=== PATIENT | female | born 1960 | race Hispanic/Latino ===

== ENCOUNTER 2020-01-01 13:31 | Inpatient (IN) | payer OTHER ==
[~2020-01-01] VITALS: Ht 165.1 cm; Wt 111.2 kg
[2020-01-01] MEDS ORDERED: MAG HYDROX/AL HYDROX/SIMETH ES 30 ML SUSP UDCUP ONE (14:20)
[2020-01-01] MEDS ORDERED: LIDOCAINE HCL 2% VISCOUS 15 ML UDCUP ONE (14:20)
[2020-01-01] MEDS ORDERED: ONDANSETRON HCL 4 MG/2 ML VIAL ONE (14:20)
[2020-01-01] MEDS ORDERED: KETOROLAC TROMETHAMINE 15MG/ML ONE (14:20)
[2020-01-01] MEDS ORDERED: MORPHINE SULFATE 4 MG/1ML SYG ONE ×2 (14:21→15:56)
[2020-01-01] MEDS ORDERED: SODIUM CHLORIDE 0.9% 1000ML 1,000 ML IV ONE (14:21)
[2020-01-01 14:32] LABS: BASOPHILS % (AUTO) 0.1 % (0.0-5.0); HEMATOCRIT 48.7 % (36-48); LYMPHOCYTES % (AUTO) 8.3 % (21.0-51.0); MEAN CORPUSCULAR HEMOGLOBIN 28.6 pg (27.0-33.0); MEAN CORPUSCULAR HGB CONC 34.3 g/dL (32.0-36.0); MEAN CORPUSCULAR VOLUME 83.4 fL (79-99); MONOCYTES % (AUTO) 4.7 % (3.0-13.0); NEUTROPHILS % (AUTO) 86.6 % (40.0-77.0); PLATELET COUNT (AUTO) 316 K/uL (130-400); RED BLOOD CELL COUNT(AUTO) 5.84 MIL/uL (4.00-5.50); RED CELL DISTRIBUTION WIDTH 13.5 % (11.0-15.5); WHITE BLOOD COUNT (AUTO) 17.9 K/uL (4.8-10.8)
[2020-01-01 14:50] LABS: CREATININE 0.9 mg/dL (0.5-1.5); POTASSIUM 3.7 mmol/L (3.5-5.1)
[2020-01-01 14:55] LABS: ALBUMIN 3.8 g/dL (3.5-5.0); BILIRUBIN,TOTAL 0.7 mg/dL (0.2-1.0); TOTAL PROTEIN, SERUM 7.5 g/dL (6.0-8.3)
[2020-01-01] MEDS ORDERED: ZOSYN 3.375GM+NS 50ML 50 ML IV ONE (15:55)
[2020-01-01] MEDS ORDERED: LACTATED RINGERS 1000ML IV SCH (16:45)
[2020-01-01] MEDS: LACTATED RINGERS 1000ML 1,000 ML IV SCH (16:45)
[2020-01-01] MEDS ORDERED: ACETAMINOPHEN 325 MG TAB PO PRN (16:45)
[2020-01-01] MEDS ORDERED: HYDRALAZINE HCL 20 MG/ML VIAL IV PRN (16:45)
[2020-01-01] MEDS ORDERED: ONDANSETRON HCL 4 MG/2 ML VIAL IV PRN (16:45)
[2020-01-01] MEDS ORDERED: LACTULOSE 20 GM/30 ML UDCUP PO PRN (16:45)
[2020-01-01] MEDS: ZOSYN 3.375GM+NS 50ML 50 ML IV SCH (16:45)
[2020-01-01] MEDS ORDERED: LACTATED RINGERS 1000ML 1,000 ML IV ONE (17:42)
[2020-01-01] MEDS ORDERED: LISI10TA7 PO (19:44)
[2020-01-01] MEDS: FAMOTIDINE/PF 20 MG/2 ML VIAL IV SCH (21:00)
[2020-01-01] MEDS ORDERED: MORPHINE SULFATE 2 MG/ML 1ML SYG ONE (22:16)
[2020-01-01] MEDS ORDERED: FAMOTIDINE/PF 20 MG/2 ML VIAL IV ONE (22:39)
[2020-01-01 23:29] VITALS: BP 182/86
[2020-01-02] MEDS: LACTATED RINGERS 1000ML 1,000 ML IV SCH ×4 (00:13→22:30)
[2020-01-02] MEDS: ZOSYN 3.375GM+NS 50ML 50 ML IV SCH ×3 (01:17→17:20)
[2020-01-02] MEDS: MORPHINE SULFATE 4 MG/1ML SYG IV PRN ×2 (01:52→22:25)
[2020-01-02 03:32] VITALS: BP 142/72
[2020-01-02 06:43] LABS: BASOPHILS % (AUTO) 0.2 % (0.0-5.0); EOSINOPHILS % (AUTO) 0.2 % (0.0-8.0); HEMATOCRIT 41.7 % (36-48); LYMPHOCYTES % (AUTO) 15.9 % (21.0-51.0); MEAN CORPUSCULAR HEMOGLOBIN 28.6 pg (27.0-33.0); MEAN CORPUSCULAR HGB CONC 32.9 g/dL (32.0-36.0); MEAN CORPUSCULAR VOLUME 87.1 fL (79-99); MONOCYTES % (AUTO) 6.1 % (3.0-13.0); NEUTROPHILS % (AUTO) 77.3 % (40.0-77.0); PLATELET COUNT (AUTO) 255 K/uL (130-400); RED BLOOD CELL COUNT(AUTO) 4.79 MIL/uL (4.00-5.50); RED CELL DISTRIBUTION WIDTH 14.1 % (11.0-15.5); WHITE BLOOD COUNT (AUTO) 13.2 K/uL (4.8-10.8)
[2020-01-02 06:50] LABS: HEMOGLOBIN A1C 5.7 % (4.0-6.0)
[2020-01-02 07:08] LABS: BILIRUBIN,TOTAL 0.7 mg/dL (0.2-1.0); CREATININE 0.8 mg/dL (0.5-1.5); THYROID STIMULATING HORMONE 1.03 uIU/mL (0.36-3.74); TOTAL PROTEIN, SERUM 6.2 g/dL (6.0-8.3)
[2020-01-02 07:28] LABS: CRP QUANTITATIVE 85.3 mg/L (0.00-9.0)
[2020-01-02 08:00] VITALS: BP 156/78
[2020-01-02] MEDS: ENOXAPARIN SODIUM 30 MG/0.3 ML SQ SCH (09:09)
[2020-01-02] MEDS: FAMOTIDINE/PF 20 MG/2 ML VIAL IV SCH ×2 (09:19→22:26)
[2020-01-02 11:00] VITALS: BP 133/78
--- NOTE | 2020-01-02 12:32 | NUR ---
Initial Assessment SW met with patient. Patient lives w/spouse, Rosemary Brice, . No home services. DME: [employer], walker with wheels, shower chair. Patient needs assistance with ADL's at times but does drive. Patient and spouse just moved from [place] 5 months ago. No PCP at this time. Pharmacy is [facility] located in [place]. DCP is home. Addendum: 01/02/20 at 1236 by DANNY HADDAD SS Amended: Links added.
--- NOTE | 2020-01-02 15:23 | NUR ---
THE OFFICE OF DR. SUTHERLAND CALL BACK FOR THE PAGE. SPOKE TO THE OFFICE PERSONNEL AND NOTIFIED HER OF THE MRCP RESULT AND SHE VERBALIZED THAT SHE WILL NOTIFY DR. SUTHERLAND OF THE RESULT AND WILL CALL BACK FOR RECOMMENDATION.
[2020-01-02 17:13] VITALS: BP 141/66
[2020-01-02 19:45] VITALS: BP 166/79
[2020-01-02 23:25] VITALS: BP 131/73
[2020-01-03] VITALS (24 sets, daily range): BP systolic 88–178; BP diastolic 71–102
[2020-01-03] MEDS: ZOSYN 3.375GM+NS 50ML 50 ML IV SCH ×3 (02:16→16:45)
[2020-01-03] MEDS: LACTATED RINGERS 1000ML 1,000 ML IV SCH ×4 (04:36→20:19)
[2020-01-03] MEDS: MORPHINE SULFATE 4 MG/1ML SYG IV PRN (04:37)
[2020-01-03 05:22] LABS: BASOPHILS % (AUTO) 0.2 % (0.0-5.0); HEMATOCRIT 37.2 % (36-48); LYMPHOCYTES % (AUTO) 15.9 % (21.0-51.0); MEAN CORPUSCULAR HEMOGLOBIN 28.3 pg (27.0-33.0); MEAN CORPUSCULAR HGB CONC 32.5 g/dL (32.0-36.0); MEAN CORPUSCULAR VOLUME 86.9 fL (79-99); MONOCYTES % (AUTO) 6.9 % (3.0-13.0); NEUTROPHILS % (AUTO) 75.6 % (40.0-77.0); PLATELET COUNT (AUTO) 191 K/uL (130-400); RED BLOOD CELL COUNT(AUTO) 4.28 MIL/uL (4.00-5.50); RED CELL DISTRIBUTION WIDTH 13.9 % (11.0-15.5); WHITE BLOOD COUNT (AUTO) 13.2 K/uL (4.8-10.8)
[2020-01-03 05:48] LABS: ALBUMIN 2.4 g/dL (3.5-5.0); BILIRUBIN,TOTAL 0.8 mg/dL (0.2-1.0); CREATININE 0.6 mg/dL (0.5-1.5); POTASSIUM 3.4 mmol/L (3.5-5.1); TOTAL PROTEIN, SERUM 5.5 g/dL (6.0-8.3)
[2020-01-03 06:00] LABS: CRP QUANTITATIVE 172.6 mg/L (0.00-9.0)
[2020-01-03] MEDS: ENOXAPARIN SODIUM 30 MG/0.3 ML SQ SCH (09:00)
[2020-01-03] MEDS: FAMOTIDINE/PF 20 MG/2 ML VIAL IV SCH ×2 (10:06→20:19)
[2020-01-03] MEDS ORDERED: INDOMETHACIN 50 MG SUPP.RECT RC SCH (14:00)
[2020-01-03] MEDS ORDERED: NEOSTIGMINE 5MG/5ML SYR IV ONE ×2 (15:16→16:11)
[2020-01-03] MEDS ORDERED: MIDAZOLAM HCL 1 MG/ML 2ML VIAL ONE (15:16)
[2020-01-03] MEDS ORDERED: LIDOCAINE PF 2% 5ML ABBOJECT ONE (15:16)
[2020-01-03] MEDS ORDERED: GLYCOPYRROLATE 1 MG/5 ML SYRINGE ONE ×2 (15:16→16:11)
[2020-01-03] MEDS ORDERED: SUCCINYLCHOLINE 200MG/10ML SYR ONE (15:16)
[2020-01-03] MEDS ORDERED: PROPOFOL 10 MG/ML 20ML VIAL IV ONE (15:17)
[2020-01-03] MEDS ORDERED: ROCURONIUM 10MG/1ML SYR 10 MG/ML ML ONE (15:17)
[2020-01-03] MEDS ORDERED: FENTANYL CITRATE PF 50 MCG/1 ML 2ML VIAL ONE (15:18)
[2020-01-03] MEDS ORDERED: IOHEXOL-350 50ML VIAL IV ONE (15:20)
[2020-01-04] VITALS (26 sets, daily range): BP systolic 131–165; BP diastolic 67–84
[2020-01-04] MEDS: ZOSYN 3.375GM+NS 50ML 50 ML IV SCH ×2 (00:35→09:02)
[2020-01-04] MEDS: LACTATED RINGERS 1000ML 1,000 ML IV SCH ×3 (04:30→21:46)
[2020-01-04 05:15] LABS: BASOPHILS % (AUTO) 0.2 % (0.0-5.0); EOSINOPHILS % (AUTO) 1.2 % (0.0-8.0); HEMATOCRIT 40.5 % (36-48); LYMPHOCYTES % (AUTO) 19.4 % (21.0-51.0); MEAN CORPUSCULAR HEMOGLOBIN 28.3 pg (27.0-33.0); MEAN CORPUSCULAR HGB CONC 33.1 g/dL (32.0-36.0); MEAN CORPUSCULAR VOLUME 85.4 fL (79-99); MONOCYTES % (AUTO) 5.1 % (3.0-13.0); NEUTROPHILS % (AUTO) 73.6 % (40.0-77.0); PLATELET COUNT (AUTO) 248 K/uL (130-400); RED BLOOD CELL COUNT(AUTO) 4.74 MIL/uL (4.00-5.50); RED CELL DISTRIBUTION WIDTH 13.2 % (11.0-15.5); WHITE BLOOD COUNT (AUTO) 12.2 K/uL (4.8-10.8)
[2020-01-04 05:37] LABS: ALBUMIN 2.5 g/dL (3.5-5.0); BILIRUBIN,TOTAL 0.9 mg/dL (0.2-1.0); CREATININE 0.7 mg/dL (0.5-1.5); POTASSIUM 3.5 mmol/L (3.5-5.1); TOTAL PROTEIN, SERUM 6.2 g/dL (6.0-8.3)
[2020-01-04] MEDS: ENOXAPARIN SODIUM 30 MG/0.3 ML SQ SCH (09:00)
[2020-01-04] MEDS: FAMOTIDINE/PF 20 MG/2 ML VIAL IV SCH ×2 (09:02→21:45)
[2020-01-04] MEDS ORDERED: FENTANYL CITRATE PF 50 MCG/1 ML 2ML VIAL ONE ×2 (15:43→18:31)
[2020-01-04] MEDS ORDERED: PROPOFOL 10 MG/ML 20ML VIAL IV ONE (15:43)
[2020-01-04] MEDS ORDERED: ROCURONIUM 10MG/1ML SYR 10 MG/ML ML ONE ×2 (15:43→18:31)
[2020-01-04] MEDS ORDERED: MIDAZOLAM HCL 1 MG/ML 2ML VIAL ONE (15:43)
[2020-01-04] MEDS ORDERED: LIDOCAINE PF 2% 5ML ABBOJECT ONE (15:43)
[2020-01-04] MEDS ORDERED: LIDOCAINE HCL-MPF 1% 5ML AMP IJ ONE (15:44)
[2020-01-04] MEDS ORDERED: BUPIVACAINE/EPI/PF 0.5% 30ML VIAL IJ ONE (15:55)
[2020-01-04] MEDS ORDERED: IOHEXOL-350 50ML VIAL IV ONE ×2 (16:59→17:16)
[2020-01-04] MEDS ORDERED: ONDANSETRON HCL 4 MG/2 ML VIAL ONE (18:02)
[2020-01-04] MEDS ORDERED: DEXAMETHASONE SOD PHOSPHATE 10MG/ML 1ML VIAL ONE (18:02)
[2020-01-04] MEDS ORDERED: GLYCOPYRROLATE 1 MG/5 ML SYRINGE ONE (18:07)
[2020-01-04] MEDS ORDERED: NEOSTIGMINE 5MG/5ML SYR IV ONE (18:08)
[2020-01-04] MEDS ORDERED: SUB TO ALBUTEROL 2.5MG/3ML NEBULES PER P&T IH ONE (18:59)
[2020-01-05] MEDS ORDERED: POTASSIUM CHLORIDE 10% ELIXIR 20 MEQ/15 ML UDCUP PO PRN
[2020-01-05] MEDS ORDERED: LIDOCAINE HCL-MPF 1% 2ML VIAL IV PRN
[2020-01-05] MEDS ORDERED: POTASSIUM CHLORIDE 20MEQ/100ML 100 ML IV PRN
[2020-01-05] MEDS ORDERED: POTASSIUM CHLORIDE 20 MEQ ERTAB PO PRN
[2020-01-05 04:00] VITALS: BP 146/73
[2020-01-05 05:39] LABS: AMYLASE 58 U/L (25-115); LIPASE 136 U/L (114-286)
[2020-01-05] MEDS ORDERED: MEPERIDINE-PF 25 MG/ML SYG IV PRN (06:30)
[2020-01-05 08:00] VITALS: BP_SYST 133; BP_SYST 137; BP_DIAS 52; BP_DIAS 80
[2020-01-05] MEDS: FAMOTIDINE/PF 20 MG/2 ML VIAL IV SCH ×2 (09:33→22:05)
[2020-01-05] MEDS: LACTATED RINGERS 1000ML 1,000 ML IV SCH (09:34)
[2020-01-05] MEDS: ENOXAPARIN SODIUM 30 MG/0.3 ML SQ SCH (10:38)
[2020-01-05 11:00] VITALS: BP 157/73
[2020-01-05 16:00] VITALS: BP 136/65
[2020-01-05 19:15] VITALS: BP 145/84
[2020-01-05 23:22] VITALS: BP 124/67
[2020-01-06] MEDS: GUAIFENESIN-DM 200/20 MG 10 ML PO PRN ×2 (02:59→09:42)
[2020-01-06] MEDS: ACETAMINOPHEN-CODEINE 300/30MG TAB PO PRN ×2 (02:59→09:43)
[2020-01-06 04:00] VITALS: BP 130/64
[2020-01-06 06:04] LABS: BASOPHILS % (AUTO) 0.3 % (0.0-5.0); EOSINOPHILS % (AUTO) 1.4 % (0.0-8.0); HEMATOCRIT 35.4 % (36-48); LYMPHOCYTES % (AUTO) 19.6 % (21.0-51.0); MEAN CORPUSCULAR HEMOGLOBIN 27.9 pg (27.0-33.0); MEAN CORPUSCULAR HGB CONC 32.5 g/dL (32.0-36.0); MEAN CORPUSCULAR VOLUME 85.9 fL (79-99); MONOCYTES % (AUTO) 8.1 % (3.0-13.0); NEUTROPHILS % (AUTO) 70.2 % (40.0-77.0); PLATELET COUNT (AUTO) 263 K/uL (130-400); RED BLOOD CELL COUNT(AUTO) 4.12 MIL/uL (4.00-5.50); RED CELL DISTRIBUTION WIDTH 13.4 % (11.0-15.5); WHITE BLOOD COUNT (AUTO) 11.7 K/uL (4.8-10.8)
[2020-01-06 06:38] LABS: ALBUMIN 2.1 g/dL (3.5-5.0); BILIRUBIN,TOTAL 0.3 mg/dL (0.2-1.0); CREATININE 0.7 mg/dL (0.5-1.5); POTASSIUM 3.6 mmol/L (3.5-5.1); TOTAL PROTEIN, SERUM 5.4 g/dL (6.0-8.3)
[2020-01-06 08:00] VITALS: BP 142/61
[2020-01-06] MEDS: FAMOTIDINE/PF 20 MG/2 ML VIAL IV SCH (09:42)
[2020-01-06] MEDS: ENOXAPARIN SODIUM 30 MG/0.3 ML SQ SCH (09:47)
[2020-01-06 12:00] VITALS: BP 136/72
[2020-01-06] MEDS ORDERED: KETO10TA2 PO (15:14)
[2020-01-06] MEDS ORDERED: CEPH500B PO (15:14)
[2020-01-06] MEDS ORDERED: ACET1TAB12 PO (15:14)
[2020-01-06] MEDS ORDERED: GUAI-487 PO (15:14)
--- NOTE | 2020-01-06 18:00 | NUR ---
DISCHARGE INSTRUCTIONS Patient verbalized and demonstrated understanding of discharge instructions. Hep lock to right hand was removed with no issues; catheter intact; site intact. Bandaids from lap sites removed. Sites C/D/I. Patient had already removed her own IV site to left arm. Prescriptions given. Stated she does not like tramadol, states she will take prescriptions for pain as discussed and ordered by Dr. Thompson. Mahnaz martinez she is to follow up with surgeon.
== END 2020-01-06 18:30 | disposition home or self-care (01) | DRG 417 ==
LOC: EDH 13:31 → EDHIP 17:05 → 3BH 21:47
PROVIDERS: ADMIT Family Medicine; ATTEND Family Medicine
PROC: 0FC98ZZ Extirpation of Matter from Common Bile Duct, Via Natural or Artificial Opening Endoscopic (ICD-10-PCS; 2020-01-03)
PROC: BF141ZZ Fluoroscopy of Gallbladder, Bile Ducts and Pancreatic Ducts using Low Osmolar Contrast (ICD-10-PCS; 2020-01-04)
PROC: 0FT44ZZ Resection of Gallbladder, Percutaneous Endoscopic Approach (ICD-10-PCS; principal; 2020-01-04 17:41)
DX: K80.62 Calculus of gallbladder and bile duct with acute cholecystitis without obstruction (principal); K85.10 Biliary acute pancreatitis without necrosis or infection; K76.0 Fatty (change of) liver, not elsewhere classified; E66.9 Obesity, unspecified; I10 Essential (primary) hypertension; Z68.33 Body mass index [BMI] 33.0-33.9, adult; Z91.14 Patient's other noncompliance with medication regimen
CPT/HCPCS: 36415; 43262; 43264; 48400; 74181; 74330; 76705; 80053; 80061; 82150; 83036; 83690; 84145; 84443; 84484; 85025; 86140; 93005; A4606; C1758; C1769; C1773; G0378; J0330; J0360; J1100; J1650; J1885; J2001; J2250; J2270; J2405; J2543; J2704; J2710; J3010; J3490; J7030; J7120; Q9967

== ENCOUNTER 2023-08-14 06:52 | Emergency (ER) | payer OTHER ==
[~2023-08-14] VITALS: Ht 152.4 cm; Wt 106.6 kg
[~2023-08-14 06:52] MED LIST: ACET1TAB12 PO; CEPH500B PO; GUAI-487 PO; KETO10TA2 PO; LISI10TA24 PO
[2023-08-14] MEDS ORDERED: HYDROCODONE/ACETAMINOPHEN 5/325 MG TAB PO ONE (09:00)
[2023-08-14] MEDS ORDERED: KETOROLAC 60 MG VIAL (30MG/ML) IM ONE (09:00)
[2023-08-14 09:43] VITALS: BP 167/88; PULSE 75; RESP 18; O2SAT 94
== END 2023-08-14 10:39 | disposition home or self-care (01) ==
LOC: EDH 06:52
DX: S29.011A Strain of muscle and tendon of front wall of thorax, initial encounter (principal); G89.29 Other chronic pain; M25.551 Pain in right hip; E66.01 Morbid (severe) obesity due to excess calories; Z68.42 Body mass index [BMI] 45.0-49.9, adult; Z79.899 Other long term (current) drug therapy; X58.XXXA Exposure to other specified factors, initial encounter; Y93.89 Activity, other specified; Y92.89 Other specified places as the place of occurrence of the external cause; Y99.8 Other external cause status
CPT/HCPCS: 99285; 71250; 96372; J1885

== ENCOUNTER → 2024-08-27 | Outpatient (CLI) | payer OTHER | END | disposition home or self-care (01) | LOC: RAH 13:15 | PROVIDERS: ATTEND Internal Medicine | DX: M48.062 Spinal stenosis, lumbar region with neurogenic claudication (principal); M54.31 Sciatica, right side; Z98.890 Other specified postprocedural states | CPT/HCPCS: 72148 ==

== ENCOUNTER → 2025-02-19 | Outpatient (CLI) | payer OTHER ==
--- NOTE | 2025-02-19 15:06 | HMCIMG ---
HIP UNILAT 2-3VW RIGHT HISTORY: Right hip pain COMPARISON: None TECHNIQUE: 2 images of right hip were obtained. FINDINGS: There is no acute displaced fracture or dislocation. There is right hip joint space narrowing. Permeative changes are noted of the right femoral head. Degenerative changes are seen. IMPRESSION: 1. Findings as described above.
== END | disposition home or self-care (01) ==
LOC: OIH 14:22
PROVIDERS: ATTEND Clinical Nurse Specialist Family Health
DX: M16.11 Unilateral primary osteoarthritis, right hip (principal); M54.31 Sciatica, right side; M25.551 Pain in right hip; M70.71 Other bursitis of hip, right hip; G89.29 Other chronic pain
CPT/HCPCS: 73502